=== PATIENT | female | born 1935 | race Caucasian/White ===

== ENCOUNTER → 2017-01-08 | Outpatient (CLI) | payer MEDICARE, BC ==
--- NOTE | 2017-01-08 10:41 | XR ---
EXAMINATION TYPE: XR chest 2V DATE OF EXAM: 01/08/2017 COMPARISON: Chest x-ray July 31, 2015. HISTORY: Cough for 3 weeks. TECHNIQUE: Frontal and lateral views of the chest are obtained. FINDINGS: There is no new focal air space opacity, pleural effusion, or pneumothorax seen. There is left basilar linear scarring or atelectasis redemonstrated. Cardiac silhouette size is upper limits of normal and stable. The osseous structures are intact. IMPRESSION: Chronic changes without acute pulmonary process. No significant change from prior.
== END | disposition home or self-care (01) ==
LOC: RADXRMAIN 09:53
PROVIDERS: ATTEND Nurse Practitioner
DX: J98.4 Other disorders of lung (principal); J98.01 Acute bronchospasm
CPT/HCPCS: 71020

== ENCOUNTER → 2017-03-29 | Outpatient (CLI) | payer MEDICARE, BC ==
--- NOTE | 2017-03-29 10:54 | XR ---
EXAMINATION TYPE: XR chest 2V DATE OF EXAM: 03/29/2017 COMPARISON: 01/08/2017 TECHNIQUE: PA and lateral views submitted. HISTORY: Cough FINDINGS: The lungs are clear and there is no pneumothorax, pleural effusion, or focal pneumonia. Hyperinflat ion noted with biapical pleural thickening. Degenerative change of the spine. IMPRESSION: 1. No acute process.
== END ==
LOC: RAD 10:39
PROVIDERS: ATTEND Family Medicine
DX: R05 Cough (principal)
CPT/HCPCS: 71020

== ENCOUNTER → 2017-05-25 | Outpatient (CLI) | payer MEDICARE, BC ==
--- NOTE | 2017-05-25 14:35 | US ---
EXAMINATION TYPE: US venous doppler duplex UE LT DATE OF EXAM: 05/25/2017 COMPARISON: NONE CLINICAL HISTORY: R22.32 Localized swelling. Palpable, tender areas felt by patient is upper lateral left arm, no injury, no iv site or recent shots, no h/o dvt SIDE PERFORMED: Left Left Arm: Appears negative for DVT scanned at area of patient palpable on left upper lateral arm and appearance of subcutaneous small lipoma seen, hyperechoic, 1.1cm in size, non vascular. Grayscale, color doppler, spectral doppler imaging performed of the deep veins of the upper extremiti es. There is normal flow, compressibility and vascular waveforms. IMPRESSION: No ultrasound evidence for acute deep or superficial vein thrombus in the left upper extr emity.
== END | disposition home or self-care (01) ==
LOC: RADUSWWP 12:52
PROVIDERS: ATTEND Family Medicine
DX: R22.32 Localized swelling, mass and lump, left upper limb (principal)

== ENCOUNTER → 2017-08-03 | Outpatient (CLI) | payer MEDICARE, BC ==
--- NOTE | 2017-08-03 15:12 | XR ---
EXAMINATION TYPE: XR chest 2V DATE OF EXAM: 08/03/2017 COMPARISON: 03/29/2017 TECHNIQUE: PA and lateral views submitted. HISTORY: Cough FINDINGS: The lungs are clear and there is no pneumothorax, pleural effusion, or focal pneumonia. Biapical pl eural thickening. No overt failure. Hypertrophic and degenerative change of the spine. Postsurgical c hange in the thoracolumbar junction. IMPRESSION: 1. No acute process.
== END | disposition home or self-care (01) ==
LOC: RADXRMAIN 14:53
PROVIDERS: ATTEND Family Medicine
DX: R05 Cough (principal)
CPT/HCPCS: 71046

== ENCOUNTER → 2018-03-04 | Outpatient (CLI) | payer MEDICARE, BC ==
[2018-03-04 16:06] LABS: Basophils % (A) 0 %; Eosinophils # (A) 0.1 k/uL (0-0.7); Eosinophils % (A) 1 %; HCT 39.2 % (34.0-46.0); HGB 12.6 gm/dL (11.4-16.0); Lymphocytes # (A) 1.1 k/uL (1.0-4.8); Lymphocytes % (A) 17 %; MCH 29.3 pg (25.0-35.0); MCHC 32.2 g/dL (31.0-37.0); Mean Platelet Volume 7.3; Monocytes # (A) 0.4 k/uL (0-1.0); Monocytes % (A) 6 %; Neutrophils # (A) 5.1 k/uL (1.3-7.7); Neutrophils % (A) 74 %; Platelet Count 203 k/uL (150-450); RBC 4.31 m/uL (3.80-5.40); WBC 6.9 k/uL (3.8-10.6)
== END | disposition home or self-care (01) ==
LOC: LABWHC1 15:41
PROVIDERS: ATTEND Internal Medicine Pulmonary Disease
DX: J45.909 Unspecified asthma, uncomplicated (principal); R05 Cough; R06.02 Shortness of breath
CPT/HCPCS: 36415; 82103; 82104; 82785; 85025; 86001; 86003; 86606; 86609

== ENCOUNTER → 2018-03-10 | Outpatient (CLI) | payer MEDICARE, BC ==
--- NOTE | 2018-03-10 08:57 | CT ---
EXAMINATION TYPE: CT chest wo con DATE OF EXAM: 03/10/2018 COMPARISON: Chest radiograph dated 08/03/2017 HISTORY: Cough, Shortness of breath CT DLP: 338.9 mGycm. Automated Exposure Control for Dose Reduction was Utilized. TECHNIQUE: CT scan of the thorax is performed without IV contrast. FINDINGS: LUNGS: There is a 6 mm subsolid pulmonary nodule within the right upper lobe on series 4 image 26. Th ere is also pleural-based 3 mm solid pulmonary nodule on series 4 image 46 also seen on coronal image 59. There is a spiculated subsolid pulmonary nodule in the left upper lobe measuring 7 x 4 mm on ser ies 4 image 23 and series 7 image 91. Subsequent 3 mm density is also seen anterolaterally within the left upper lobe on coronal image 102 and axial image 30. Within the right upper lobe there is a 3 mm solid pulmonary nodule on image 16. Minimal biapical pleural parenchymal scarring and subsegmental atelectasis are also noted. No focal c onsolidation, pulmonary vascular congestion, or significant emphysematous change. There is no pleural effusion or pneumothorax seen. The tracheobronchial tree is patent. MEDIASTINUM: Lack of IV contrast is noted to limit evaluation for mediastinal and especially hilar ad enopathy. There are no definitive greater than 1 cm hilar or mediastinal lymph nodes. No cardiomega ly or pericardial effusion is seen. Tdry-ms-qlaqqial coronary artery calcifications are noted. Ascend ing thoracic aorta is within normal limits of sizer measuring 3.3 cm. OTHER: Probable left renal sinus cyst is present. Nonspecific hypoattenuated splenic lesions are seen measuring 1.3 and 1.9 cm. These are near fluid attenuated and may represent cysts. Associated calcif ication is seen within the left splenic parenchyma on image 53. There is a small hiatal hernia presen t. Mild multilevel degenerative changes of thoracic spine is present.. IMPRESSION: 1. Multiple bilateral pulmonary nodules some of which are subcentimeter and measuring up to 7 mm on t he left. Given the nodules size and composition follow-up CT is recommended in 3-6 months to evaluate for resolution or progression as some of these these could be inflammatory or neoplastic. 2. No evidence of interstitial lung disease or focal consolidation.
== END ==
LOC: RADCTMAIN 08:18
PROVIDERS: ATTEND Internal Medicine Pulmonary Disease
DX: R91.8 Other nonspecific abnormal finding of lung field (principal)
CPT/HCPCS: 71250

== ENCOUNTER → 2018-06-28 | Outpatient (CLI) | payer MEDICARE, BC ==
--- NOTE | 2018-06-28 13:06 | CT ---
EXAMINATION TYPE: CT chest wo con DATE OF EXAM: 06/28/2018 COMPARISON: Abnormal CT scan HISTORY: Follow up "spots" on lung. Shortness of breath. CT DLP: 324.3 mGycm. Automated Exposure Control for Dose Reduction was Utilized. TECHNIQUE: CT scan of the thorax is performed without IV contrast. FINDINGS: LUNGS: Nodules: Stable 6 mm right upper lobe pulmonary nodule. Stable 3 mm pleural-based nodule right upper lobe The 7 x 4 mm nodule left upper lobe on previous exam no longer seen Two millimeter nodule right lower lobe stable Subsegmental areas of consolidation noted. Very mild interlobular septal thickening suggest mild surgical supervisor gianni interstitial lung disease. No pleural effusion.. 3 mm density anterior lateral margin left upper lobe stable. Stable 3 mm nodule right upper lobe. MEDIASTINUM: Lack of IV contrast is noted to limit evaluation for mediastinal and especially hilar ad enopathy. There are no definitive greater than 1 cm hilar or mediastinal lymph nodes. The heart is en larged and there is coronary artery calcification. No sizable pericardial effusion. Aorta of normal c aliber with atherosclerotic changes. There is a stable appearing extension of the inferior lobe of th e left thyroid into the upper mediastinum above the level of the sternum. Small thyroid nodule in the differential diagnosis. OTHER: Hypertrophic and degenerative changes of the spine noted. Chronic rib deformities on the left are incidentally noted correlate for remote trauma. Splenic lesions are stable. IMPRESSION: 1. There is interval resolution of the 7 mm nodule in the left upper lobe which likely is postinflamm atory. Remaining nodules are stable and measures 6 mm or less. 2. Splenic lesions are stable and are nonspecific by noncontrast technique. The what be more appropri ately evaluated with ultrasound.
== END | disposition home or self-care (01) ==
LOC: RADCTMAIN 11:59
PROVIDERS: ATTEND Internal Medicine Pulmonary Disease
DX: R91.8 Other nonspecific abnormal finding of lung field (principal); R06.02 Shortness of breath; R05 Cough
CPT/HCPCS: 71250

== ENCOUNTER → 2018-07-13 | Outpatient (CLI) | payer MEDICARE, BC ==
--- NOTE | 2018-07-14 10:56 | MM ---
Reason for exam: screening (asymptomatic). Last mammogram was performed 1 year ago. History: Patient is postmenopausal, has history of colon cancer at age 30, and history of other cancer. Family history of breast cancer in paternal grandmother at age 62. Benign excisional biopsy of the left breast, 2006. Took estrogen for 30 years beginning at age 43. Physical Findings: A clinical breast exam by your physician is recommended on an annual basis and results should be correlated with mammographic findings. MG 3D Screening Mammo W/Cad Bilateral CC and MLO view(s) were taken. Prior study comparison: July 21, 2017, left breast MG 3d work up w/cad LT. July 07, 2017, bilateral MG 3d screening mammo w/cad. The breast tissue is heterogeneously dense. This may lower the sensitivity of mammography. No significant changes when compared with prior studies. ASSESSMENT: Benign, BI-RAD 2 RECOMMENDATION: Routine screening mammogram of both breasts in 1 year.
== END | disposition home or self-care (01) ==
LOC: RADMAMWWP 15:33
PROVIDERS: ATTEND Family Medicine
DX: Z12.31 Encounter for screening mammogram for malignant neoplasm of breast (principal)
CPT/HCPCS: 77063; 77067

== ENCOUNTER → 2018-12-14 | Outpatient (CLI) | payer MEDICARE, BC | END | disposition home or self-care (01) | LOC: LABWHC1 11:36 | PROVIDERS: ATTEND Otolaryngology | DX: J30.89 Other allergic rhinitis (principal) | CPT/HCPCS: 36415 ==

== ENCOUNTER → 2019-01-11 | Outpatient (CLI) | payer MEDICARE, BC ==
--- NOTE | 2019-01-11 12:13 | BD ---
EXAMINATION TYPE: Axial Bone Density DATE OF EXAM: 01/11/2019 COMPARISON: 01/25/2009 CLINICAL HISTORY: Postmenopausal female. Osteoporosis screening. Height: 66.5 IN Weight: 167 LBS FRAX RISK QUESTIONS: Family History (Parent hip fracture): YES MOTHER History of Fracture in Adulthood: RT ANKLE FX AGE 75, RIBS AGE 79 Secondary Osteoporosis: 3. Menopause before 45: YES PARTIAL HYST AGE 31 RISK FACTORS HISTORY OF: Surgery to Spine/Hip(SHERRIE): SPINE SURGERY 2011; SHERRIE HIPS Active: YES Diet low in dairy products/other sources of calcium: YES Postmenopausal woman: PARTIAL HYST AGE 31 MEDICATIONS: Additional Medications: VIT D, BUPROPION, BABY ASPIRIN, TRAZADONE, LISINOPRIL, OMEPRAZOLE, MONT[place] T, NASAL SPRAY EXAM MEASUREMENTS: Bone mineral densitometry was performed using the [employer] System. Bone mineral density about the L Wrist (g/cm2): 0.536 T Score values are as follows: -----Dist. R+U: -3.5 -----Prox. R+U: -1.3 -----Radius total: -2.3 Bone mineral density BASELINE IMPRESSION: Normal (Values between +1 and -1 indicate normal bone mass). Consider repeating this study in 5 year s or sooner if there is some new clinical indication. NOTE: T-SCORE=SD OF THE YOUNG ADULT MEAN.
== END | disposition home or self-care (01) ==
LOC: RADBDWWP 09:02
PROVIDERS: ATTEND Family Medicine
DX: Z13.820 Encounter for screening for osteoporosis (principal); N95.1 Menopausal and female climacteric states
CPT/HCPCS: 77081

== ENCOUNTER → 2019-08-03 | Outpatient (CLI) | payer MEDICARE, BC ==
--- NOTE | 2019-08-07 09:31 | MM ---
Reason for exam: screening (asymptomatic). Last mammogram was performed 1 year and 1 month ago. History: Patient is postmenopausal, has history of colon cancer at age 30, and history of other cancer. Family history of breast cancer in paternal grandmother at age 62. Benign excisional biopsy of the left breast, 2006. Took estrogen for 30 years beginning at age 43. Physical Findings: A clinical breast exam by your physician is recommended on an annual basis and results should be correlated with mammographic findings. MG 3D Screening Mammo W/Cad Bilateral CC and MLO view(s) were taken. Prior study comparison: July 13, 2018, bilateral MG 3d screening mammo w/cad. July 21, 2017, left breast MG 3d work up w/cad LT. The breast tissue is heterogeneously dense. This may lower the sensitivity of mammography. No significant changes when compared with prior studies. ASSESSMENT: Negative, BI-RAD 1 RECOMMENDATION: Routine screening mammogram of both breasts in 1 year.
== END ==
LOC: RADMAMWWP 13:40
PROVIDERS: ATTEND Family Medicine
DX: Z12.31 Encounter for screening mammogram for malignant neoplasm of breast (principal)
CPT/HCPCS: 77063; 77067

== ENCOUNTER → 2020-10-10 | Outpatient (CLI) | payer MEDICARE, BC ==
--- NOTE | 2020-10-11 14:17 | MM ---
Reason for exam: screening (asymptomatic). Last mammogram was performed 1 year and 2 months ago. History: Patient is postmenopausal and has history of other cancer at age 30. Family history of breast cancer in paternal grandmother at age 62. Benign excisional biopsy of the left breast, 2006. Took estrogen for 30 years beginning at age 43. Physical Findings: A clinical breast exam by your physician is recommended on an annual basis and results should be correlated with mammographic findings. MG 3D Screening Mammo W/Cad Bilateral CC and MLO view(s) were taken. Prior study comparison: August 03, 2019, bilateral MG 3d screening mammo w/cad. July 13, 2018, bilateral MG 3d screening mammo w/cad. The breast tissue is heterogeneously dense. This may lower the sensitivity of mammography. There are benign appearing vascular calcifications bilaterally. Asymmetric breast tissue left inferior breast, stable. There is no discrete abnormality. ASSESSMENT: Benign, BI-RAD 2 RECOMMENDATION: Routine screening mammogram of both breasts in 1 year.
== END ==
LOC: RADMAMWWP 10:54
PROVIDERS: ATTEND Family Medicine
DX: Z12.31 Encounter for screening mammogram for malignant neoplasm of breast (principal); Z78.0 Asymptomatic menopausal state; Z80.3 Family history of malignant neoplasm of breast
CPT/HCPCS: 77063; 77067

== ENCOUNTER → 2020-12-06 | Outpatient (CLI) | payer MEDICARE, BC ==
--- NOTE | 2020-12-06 14:13 | CT ---
EXAMINATION TYPE: CT abdomen pelvis w con DATE OF EXAM: 12/06/2020 COMPARISON: None HISTORY: hematuria CT DLP: 936.50 mGycm Automated exposure control for dose reduction was used. CONTRAST: Performed with IV Contrast, patient injected with 100ml mL of Isovue 300. Images obtained from the diaphragm to the floor the pelvis with oral and IV contrast. Lung bases are clear. There is no pleural effusion. Heart size is normal. There is no pericardial eff usion. Liver appears intact. The bile ducts are not dilated. Stomach is intact. Spleen is intact. There are small splenic cysts that measure 1.5 cm. There is no pancreatic mass. Gallbladder appears normal. There is no adrenal mass. Kidneys show satisfactory contrast opacification. There is no hydronephrosi s. There is 2.4 cm cortical cyst lower pole right kidney. The delayed images show normal renal excret ion. There is no retroperitoneal adenopathy. There is metal artifact from bilateral hip prosthesis. B ladder distends smoothly. I see no pelvic mass. There is posterior fusion surgery in the lower lumbar spine. Lumbar vertebra have normal alignment. There is L3 mild compression fracture 15% with anterio r wedging. There are multiple sigmoid diverticula. I see no definite diverticulitis. Exam limited by metal artifact. IMPRESSION: Right renal cortical cyst. No solid renal mass. No renal obstruction. Colonic diverticulosis without definite diverticulitis.
== END | disposition home or self-care (01) ==
LOC: RADCTMAIN 11:46
PROVIDERS: ATTEND Family Medicine
DX: N28.1 Cyst of kidney, acquired (principal); K57.30 Diverticulosis of large intestine without perforation or abscess without bleeding
CPT/HCPCS: 82565; 84520; 74177; 36415; Q9967

== ENCOUNTER → 2020-12-10 | Outpatient (CLI) | payer MEDICARE, BC ==
--- NOTE | 2020-12-10 14:54 | XR ---
Right wrist HISTORY: Pain, trauma 4 views of the right wrist There are arthropathy changes, subchondral cyst formation is present within the carpal bones, radial styloid. Bone mineralization is reduced. Joint space loss is present radiocarpal joint, intercarpal r ow laterally. Alignment is maintained. Suspect some soft tissue calcifications are present distal to the radial styloid. IMPRESSION: Correlate for crystal deposition arthropathy, hypercalcemic states. No acute fracture or dislocation.
== END | disposition home or self-care (01) ==
LOC: RADXRMAIN 14:27
PROVIDERS: ATTEND Family Medicine
DX: M12.831 Other specific arthropathies, not elsewhere classified, right wrist (principal); E83.52 Hypercalcemia

== ENCOUNTER → 2021-01-13 | Outpatient (CLI) | payer MEDICARE, BC ==
--- NOTE | 2021-01-13 16:18 | BD ---
EXAMINATION TYPE: Axial Bone Density DATE OF EXAM: 01/13/2021 COMPARISON: 01/11/2019 CLINICAL HISTORY: Postmenopausal female. Height: 66 IN Weight: 168 LBS FRAX RISK QUESTIONS: Family History (Parent hip fracture): YES MOTHER Secondary Osteoporosis: 3. Menopause before 45: AGE 31 Rheumatoid Arthritis: YES RISK FACTORS HISTORY OF: Surgery to Spine/Hip(right/left): HIP REPLACEMENT LT 2012 RT 2013; L-SPINE SURGERY 2011 Active: YES Diet low in dairy products/other sources of calcium: YES Postmenopausal woman: AGE 31 MEDICATIONS: Additional Medications: LISINOPRIL, TRAZODONE, MONTELUKAST, BURPROPION,ASPIRIN, VIT D, ALBUTEROL SULF ATE, BUDESONIDE, PROBIOTIC, Additional History: APPENDIX CANCER NO TREATMENTS EXAM MEASUREMENTS: Bone mineral densitometry was performed using the [employer] System. PT HAD L-SPINE SURGERY PT HAD SHERRIE HIP REPLACEMENTS Bone mineral density about the L Wrist (g/cm2): 0.502 T Score values are as follows: -----Dist. R+U: -3.6 -----Prox. R+U: -1.9 -----Radius total: -2.8 Bone mineral density has: Decreased -6.7% since study of: 01/11/2019 IMPRESSION: Osteopenia (T Score between -2.5 and -1) remains present. There remains slightly increased risk of fracture and the patient may be considered for treatment. Re-Screen 2-5 years. NOTE: T-SCORE=SD OF THE YOUNG ADULT MEAN.
== END | disposition home or self-care (01) ==
LOC: RADBDWWP 10:50
PROVIDERS: ATTEND Family Medicine
DX: Z13.820 Encounter for screening for osteoporosis (principal); M85.80 Other specified disorders of bone density and structure, unspecified site; Z78.0 Asymptomatic menopausal state
CPT/HCPCS: 77081

== ENCOUNTER → 2021-10-27 | Outpatient (CLI) | payer MEDICARE, BC ==
--- NOTE | 2021-10-28 12:56 | MM ---
Reason for exam: screening (asymptomatic). Last mammogram was performed 1 year and 1 month ago. History: Patient is postmenopausal and has history of other cancer at age 30. Family history of breast cancer in paternal grandmother at age 62. Benign excisional biopsy of the left breast, 2006. Took estrogen for 30 years beginning at age 43. Physical Findings: A clinical breast exam by your physician is recommended on an annual basis and results should be correlated with mammographic findings. MG 3D Screening Mammo W/Cad Bilateral CC and MLO view(s) were taken. Prior study comparison: October 10, 2020, bilateral MG 3d screening mammo w/cad. August 03, 2019, bilateral MG 3d screening mammo w/cad. There are scattered fibroglandular densities. There is chronic nodularity in the right anterior lateral breast and the left inferior breast. Benign vascular calcifications. No significant changes when compared with prior studies. ASSESSMENT: Benign, BI-RAD 2 RECOMMENDATION: Routine screening mammogram of both breasts in 1 year.
== END | disposition home or self-care (01) ==
LOC: RADMAMWWP 12:42
PROVIDERS: ATTEND Family Medicine
DX: Z12.31 Encounter for screening mammogram for malignant neoplasm of breast (principal)
CPT/HCPCS: 77063; 77067

== ENCOUNTER → 2021-11-11 | Outpatient (CLI) | payer MEDICARE, BC ==
--- NOTE | 2021-11-11 09:49 | US ---
EXAMINATION TYPE: US thyroid st tissue head/neck DATE OF EXAM: 11/11/2021 COMPARISON: Outside prior not available for review. CLINICAL HISTORY: 86-year-old female E04.1. Follow-up exam from [facility] TECHNIQUE: Multiple sonographic images of the thyroid gland are obtained. FINDINGS: GLAND SIZE: Right Lobe: 3.3 x 1.7 x 2.0 cm Overall Parenchyma: heterogenous Left Lobe: 4.2 x 0.9 x 1.3 cm Overall Parenchyma: heterogeneous Isthmus Thickness: 0.6cm NODULES RIGHT: # of nodules measured on right: 1 1. 1.0 X 0.7 x 0.5 cm, mid , solid or almost completely solid, hypoechoic TR 4 nodule, which is wid er than tall, with smooth margins, without echogenic foci. 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 0.9 X 0.5 x 0.5 cm, mid/inf , solid or almost completely solid, hypoechoic TR 4 nodule, which is wider than tall, with smooth margins, with echogenic foci. Prior size: 1.4 x 1.2 x 1.3 cm ISTHMUS: # of nodules measured in the isthmus: 0 Bilateral neck scanned, no evidence of lymphadenopathy. IMPRESSION: 1. Heterogeneous thyroid parenchyma, possible goiter. 2. A solitary TR4 nodule on either side measuring 1 cm on the right and 9 mm on left. The left-sided nodule appears to be smaller compared to 1.4 cm on the outside prior. Prior exam images are not avail able for review.
== END | disposition home or self-care (01) ==
LOC: RADUSWWP 07:55
PROVIDERS: ATTEND Otolaryngology
DX: E04.1 Nontoxic single thyroid nodule (principal)
CPT/HCPCS: 76536

== ENCOUNTER → 2022-02-04 | Outpatient (CLI) | payer MEDICARE, BC ==
--- NOTE | 2022-02-04 11:13 | XR ---
EXAMINATION TYPE: XR chest 2V DATE OF EXAM: 02/04/2022 COMPARISON: Chest x-ray 08/03/2017 HISTORY: Pain and swelling TECHNIQUE: Frontal and lateral views of the chest are obtained. FINDINGS: There is no focal air space opacity, pleural effusion, or pneumothorax seen. The cardiac silhouette size is within normal limits. Aorta shows atheromatous change as on prior exam. The osseo us structures are stable, superior endplate depression at vertebral body near the thoracolumbar junct ion shows a stable appearance. There is thoracic spondylosis.. IMPRESSION: No acute cardiopulmonary process.
== END | disposition home or self-care (01) ==
LOC: RADXRMAIN 10:43
PROVIDERS: ATTEND Nurse Practitioner Family
DX: R07.89 Other chest pain (principal)
CPT/HCPCS: 71046

== ENCOUNTER → 2022-02-23 | Outpatient (CLI) | payer MEDICARE, BC ==
--- NOTE | 2022-02-23 20:23 | CT ---
EXAMINATION TYPE: CT chest wo con CT DLP: 328.10 mGycm, Automated exposure control for dose reduction was used. DATE OF EXAM: 02/23/2022 6:40 PM COMPARISON: CT chest 06/28/2018 CLINICAL INDICATION:Female, 87 years old with history of R07.89, R05.3 OTHER CHEST PAIN, UNDER BREAST CHEST PAIN AND COUGH TECHNIQUE: Multiple axial images were obtained through the chest. Sagittal and coronal reformats were created for review. Contrast used: none. Oral contrast used: none. FINDINGS: LUNGS/ PLEURA: No evidence of focal consolidation, pneumothorax or pleural effusion. There is right l ower lobe 3 mm pulmonary nodule. AIRWAY: Patent and unremarkable. HEART: Heart is mildly enlarged for size there is moderate to severe coronary artery atherosclerosis. MEDIASTINUM: No gross evidence of adenopathy. VASCULATURE: Atherosclerotic calcifications are present throughout the aorta and its branches. MUSCULOSKELETAL: No acute osseous abnormalities, multilevel disc degeneration changes with mild S-sha ped scoliosis. SOFT TISSUES/LYMPH NODES: Unremarkable. LOWER NECK: Left lower thyroid nodule measuring up to 10 mm. UPPER ABDOMEN: Scattered clonic diverticula are present. IMPRESSION: 1. No evidence for acute process within the thorax. 2. Moderate to severe coronary atherosclerosis. 3. Left lower thyroid nodule measuring 10 mm. 4. Right lower lobe 3 mm pulmonary nodule. Likely benign. Attention on follow-up in 12 months if the patient has risk factors.
== END | disposition home or self-care (01) ==
LOC: RADCTMAIN 17:24
PROVIDERS: ATTEND Family Medicine
DX: R07.89 Other chest pain (principal); R05.3 Chronic cough
CPT/HCPCS: 36415; 71250; 82565; 84520

== ENCOUNTER 2022-03-16 13:04 | Emergency (ER) | payer MEDICARE, BC ==
[2022-03-16] MEDS ORDERED: SODIUM CHLORIDE 0.9% 1,000 ML IV STA (13:55)
[2022-03-16] MEDS ORDERED: MORPHINE SULFATE 2 MG/ML SYRINGE IVP STA (13:55)
--- NOTE | 2022-03-16 14:24 | ED ---
Abdominal Pain HPI - General Chief Complaint: Abdominal Pain Stated Complaint: Abdominal Pain Time Seen by Provider: 03/16/22 13:50 Source: patient Mode of arrival: ambulatory Limitations: no limitations - History of Present Illness Initial Comments: Patient is an 87-year-old female presenting with chief complaint of right side pain. Patient states this pain has been ongoing since January, however she states that a few days ago while bending over while seated in chair, she felt a sharp onset of worsening pain. Patient states that the pain is located across her rib on the right upper side. Patient has no surgical history. Patient had a CT of the chest without contrast on 02/23/22, no acute process was found, there was a right lower lobe 3 mm pulmonary nodule that is likely benign as well as moderate to severe coronary atherosclerosis. Patient admits to nausea when the pain is severe, no vomiting. No diarrhea, , hematochezia, melena, dysuria, hematuria, flank pain, chest pain, shortness of breath, fever, chills, palpitations, weakness. - Related Data Home Medications Medication Instructions Recorded Confirmed Aspirin EC [Ecotrin Low Dose] 81 mg PO DAILY 03/16/22 03/16/22 Cholecalciferol [Vitamin D3 (125 125 mcg PO DAILY 03/16/22 03/16/22 Mcg = 5000 Iu)] Cyanocobalamin (Vitamin B-12) 1,000 mcg PO DAILY 03/16/22 03/16/22 [Vitamin B-12] Ezetimibe [Zetia] 10 mg PO HS 03/16/22 03/16/22 Montelukast [Singulair] 10 mg PO DAILY 03/16/22 03/16/22 Rosuvastatin Calcium [Crestor] 5 mg PO HS 03/16/22 03/16/22 buPROPion XL [Wellbutrin XL] 150 mg PO DAILY 03/16/22 03/16/22 lisinopriL [Zestril] 20 mg PO DAILY 03/16/22 03/16/22 traZODone HCL [Desyrel] 100 mg PO HS 03/16/22 03/16/22 Previous Rx's Medication Instructions Recorded Cyclobenzaprine [Flexeril] 10 mg PO HS #15 tab 03/16/22 Lidocaine 5% Patch [Lidoderm 5% 1 patch TOPICAL DAILY #1 packet 03/16/22 Patch] methylPREDNISolone Dose Pack 4 mg PO DIRECTED #1 packet 03/16/22 [Medrol Dose Pack] Allergies Allergy/AdvReac Type Severity Reaction Status Date / Time No Known Allergies Allergy Verified 03/16/22 13:10 Review of Systems ROS Statement: Those systems with pertinent positive or pertinent negative responses have been documented in the HPI. ROS Other: All systems not noted in ROS Statement are negative. Past Medical History Past Medical History: Asthma, Hyperlipidemia, Hypertension History of Any Multi-Drug Resistant Organisms: None Reported Past Surgical History: No Surgical Hx Reported Past Psychological History: No Psychological Hx Reported Smoking Status: Never smoker Past Alcohol Use History: Occasional Past Drug Use History: None Reported General Exam Limitations: no limitations General appearance: alert, in no apparent distress Head exam: Present: atraumatic, normocephalic, normal inspection Eye exam: Present: normal appearance, EOMI. Absent: scleral icterus, periorbital swelling Neck exam: Present: normal inspection Respiratory exam: Present: normal lung sounds bilaterally, chest wall tenderness (R side over inferior ribs). Absent: respiratory distress, wheezes, rales, rhonchi, stridor Cardiovascular Exam: Present: regular rate, normal rhythm, normal heart sounds. Absent: systolic murmur, diastolic murmur, rubs, gallop, clicks GI/Abdominal exam: Present: soft, tenderness (RUQ). Absent: distended, guarding, rebound, rigid Neurological exam: Present: alert, oriented X3, CN II-XII intact Psychiatric exam: Present: normal affect, normal mood Skin exam: Present: warm, dry, intact, normal color. Absent: rash Course Vital Signs 03/16/22 03/16/22 13:06 16:52 Temperature 98 F 98.1 F Pulse Rate 85 84 Respiratory 20 18 Rate Blood Pressure 161/84 167/100 O2 Sat by Pulse 96 96 Oximetry Medical Decision Making - Medical Decision Making Patient is an 87-year-old female presenting with chief complaint of right side pain. Patient states that the pain is right over her rib on the right lower side. Pain has been present since January, states that over the last few days it has worsened. Patient recently got a chest CT which showed no acute abnormalities. On examination there is pain to light palpation over the rib, this pain increases with range of motion. Lab work shows no leukocytosis, hepatobiliary labs are WNL. BUN and creatinine are consistent with baseline levels. Urine shows no evidence of infectious process. Acute abdominal series with chest x-ray shows COPD and some atelectasis, no evidence for free air or bowel obstruction. Pain is likely musculoskeletal in origin. Patient is given steroid, muscle relaxer, lidocaine patch. Instructed to follow-up with PCP in one to 2 days. Report back to ER if any new or worsening symptoms. Discussed return parameters answered all questions. Patient conveyed verbal understanding and agreed to the plan. I discussed this case with my attending Dr. Aguayo. - Lab Data Result diagrams: 03/16/22 14:15 03/16/22 14:15 Lab Results 03/16/22 03/16/22 03/16/22 Range/Units 14:15 14:15 14:15 WBC 5.1 (3.8-10.6) k/uL RBC 3.81 (3.80-5.40) m/uL Hgb 11.7 (11.4-16.0) gm/dL Hct 35.5 (34.0-46.0) % MCV 93.3 (80.0-100.0) fL MCH 30.8 (25.0-35.0) pg MCHC 33.0 (31.0-37.0) g/dL RDW 13.0 (11.5-15.5) % Plt Count 162 (150-450) k/uL MPV 8.4 Neutrophils % 63 % Lymphocytes % 26 % Monocytes % 8 % Eosinophils % 1 % Basophils % 0 % Neutrophils # 3.2 (1.3-7.7) k/uL Lymphocytes # 1.3 (1.0-4.8) k/uL Monocytes # 0.4 (0-1.0) k/uL Eosinophils # 0.1 (0-0.7) k/uL Basophils # 0.0 (0-0.2) k/uL PT 10.1 (9.0-12.0) sec INR 0.9 (<1.2) APTT 22.2 (22.0-30.0) sec Sodium (137-145) mmol/L Potassium (3.5-5.1) mmol/L Chloride (98-107) mmol/L Carbon Dioxide (22-30) mmol/L Anion Gap mmol/L BUN (7-17) mg/dL Creatinine (0.52-1.04) mg/dL Est GFR (CKD-EPI)AfAm (>60 ml/min/1.73 sqM) Est GFR (CKD-EPI)NonAf (>60 ml/min/1.73 sqM) Glucose (74-99) mg/dL Plasma Lactic Acid Chris (0.7-2.0) mmol/L Calcium (8.4-10.2) mg/dL Total Bilirubin (0.2-1.3) mg/dL AST (14-36) U/L ALT (4-34) U/L Alkaline Phosphatase (38-126) U/L Troponin I (0.000-0.034) ng/mL Total Protein (6.3-8.2) g/dL Albumin (3.5-5.0) g/dL Amylase (30-110) U/L Lipase (23-300) U/L Urine Color Light Yellow Urine Appearance Clear (Clear) Urine pH 6.5 (5.0-8.0) Ur Specific [place] 1.014 (1.001-1.035) Urine Protein Trace H (Negative) Urine Glucose (UA) Negative (Negative) Urine Ketones Trace H (Negative) Urine Blood Negative (Negative) Urine Nitrite Negative (Negative) Urine Bilirubin Negative (Negative) Urine Urobilinogen <2.0 (<2.0) mg/dL Ur Leukocyte Esterase Small H (Negative) Urine RBC 1 (0-5) /hpf Urine WBC 1 (0-5) /hpf Ur Squamous Epith Cells <1 (0-4) /hpf Urine Mucus Rare H (None) /hpf 03/16/22 03/16/22 03/16/22 Range/Units 14:15 14:15 14:15 WBC (3.8-10.6) k/uL RBC (3.80-5.40) m/uL Hgb (11.4-16.0) gm/dL Hct (34.0-46.0) % MCV (80.0-100.0) fL MCH (25.0-35.0) pg MCHC (31.0-37.0) g/dL RDW (11.5-15.5) % Plt Count (150-450) k/uL MPV Neutrophils % % Lymphocytes % % Monocytes % % Eosinophils % % Basophils % % Neutrophils # (1.3-7.7) k/uL Lymphocytes # (1.0-4.8) k/uL Monocytes # (0-1.0) k/uL Eosinophils # (0-0.7) k/uL Basophils # (0-0.2) k/uL PT (9.0-12.0) sec INR (<1.2) APTT (22.0-30.0) sec Sodium 138 (137-145) mmol/L Potassium 4.2 (3.5-5.1) mmol/L Chloride 100 (98-107) mmol/L Carbon Dioxide 26 (22-30) mmol/L Anion Gap 12 mmol/L BUN 20 H (7-17) mg/dL Creatinine 1.35 H (0.52-1.04) mg/dL Est GFR (CKD-EPI)AfAm 42 (>60 ml/min/1.73 sqM) Est GFR (CKD-EPI)NonAf 36 (>60 ml/min/1.73 sqM) Glucose 92 (74-99) mg/dL Plasma Lactic Acid Chris 0.6 L (0.7-2.0) mmol/L Calcium 10.6 H (8.4-10.2) mg/dL Total Bilirubin 0.7 (0.2-1.3) mg/dL AST 35 (14-36) U/L ALT 19 (4-34) U/L Alkaline Phosphatase 92 (38-126) U/L Troponin I <0.012 (0.000-0.034) ng/mL Total Protein 7.0 (6.3-8.2) g/dL Albumin 4.6 (3.5-5.0) g/dL Amylase 121 H (30-110) U/L Lipase 113 (23-300) U/L Urine Color Urine Appearance (Clear) Urine pH (5.0-8.0) Ur Specific [place] (1.001-1.035) Urine Protein (Negative) Urine Glucose (UA) (Negative) Urine Ketones (Negative) Urine Blood (Negative) Urine Nitrite (Negative) Urine Bilirubin (Negative) Urine Urobilinogen (<2.0) mg/dL Ur Leukocyte Esterase (Negative) Urine RBC (0-5) /hpf Urine WBC (0-5) /hpf Ur Squamous Epith Cells (0-4) /hpf Urine Mucus (None) /hpf Disposition Clinical Impression: Strain of thoracic back region Disposition: HOME SELF-CARE Condition: Good Instructions (If sedation given, give patient instructions): Muscle Strain (ED), Back Pain (ED) Additional Instructions: Follow-up with PCP in one to 2 days. Report back to ER if any new or worsening symptoms. Take medication as prescribed. Cyclobenzaprine may cause drowsiness, do not take before driving or operating heavy machinery. Prescriptions: Cyclobenzaprine [Flexeril] 10 mg PO HS #15 tab Lidocaine 5% Patch [Lidoderm 5% Patch] 1 patch TOPICAL DAILY #1 packet methylPREDNISolone Dose Pack [Medrol Dose Pack] 4 mg PO DIRECTED #1 packet Is patient prescribed a controlled substance at d/c from ED?: No Referrals: Vandana Nunez MD [Primary Care Provider] - 1-2 days Time of Disposition: 16:41
[2022-03-16 14:27] LABS: Basophils % (A) 0 %; Eosinophils # (A) 0.1 k/uL (0-0.7); Eosinophils % (A) 1 %; HCT 35.5 % (34.0-46.0); HGB 11.7 gm/dL (11.4-16.0); Lymphocytes # (A) 1.3 k/uL (1.0-4.8); Lymphocytes % (A) 26 %; MCH 30.8 pg (25.0-35.0); MCV 93.3 fL (80.0-100.0); Mean Platelet Volume 8.4; Monocytes # (A) 0.4 k/uL (0-1.0); Monocytes % (A) 8 %; Neutrophils # (A) 3.2 k/uL (1.3-7.7); Neutrophils % (A) 63 %; Platelet Count 162 k/uL (150-450); RBC 3.81 m/uL (3.80-5.40); WBC 5.1 k/uL (3.8-10.6)
[2022-03-16 14:32] LABS: Appearance,Urine Clear (Clear); Bilirubin,Urine Negative (Negative); Blood,Urine Negative (Negative); Color,Urine Light Yellow; Glucose,Urine (UA) Negative (Negative); Ketones,Urine Trace (Negative); Leukocyte Esterase,Urine Small (Negative); Mucus,Urine Rare /hpf; Nitrite,Urine Negative (Negative); PH, Urine 6.5 (5.0-8.0); Protein,Urine Trace (Negative); RBC,Urine 1 /hpf (0-5); Specific Gravity,Urine 1.014 (1.001-1.035); Squamous Epithelial Cell,Urine <1 /hpf (0-4); Urobilinogen,Urine <2.0 mg/dL (<2.0); WBC,Urine 1 /hpf (0-5)
[2022-03-16 14:37] LABS: Albumin 4.6 g/dL (3.5-5.0); Calcium 10.6 mg/dL (8.4-10.2); Potassium 4.2 mmol/L (3.5-5.1); Total Bilirubin 0.7 mg/dL (0.2-1.3)
[2022-03-16 14:44] LABS: INR 0.9 (<1.2); Partial Thromboplastin Time 22.2 sec (22.0-30.0); Prothrombin Time 10.1 sec (9.0-12.0)
--- NOTE | 2022-03-16 15:13 | XR ---
EXAMINATION TYPE: XR abdomen acute w cxr DATE OF EXAM: 03/16/2022 COMPARISON: 02/04/2022 HISTORY: 87 year-old female right upper quadrant pain FINDINGS: Heart normal size. Mild elongation thoracic aorta. Mild patchy density at the left base. Hyperinflati on. No other consolidation or pleural effusion. No evidence for free intraperitoneal air. Bilateral total hip arthroplasties. L4-S1 posterior fusion changes. Corresponding laminectomies. Numerous pelvic phleboliths. Scattered air and stool throughout the colon extending distally to the rectum. Mild overall stool bur den. No dilated small bowel identified. IMPRESSION: 1. COPD with some mild patchy left basilar atelectasis versus early infiltrate. Correlate with patien t's symptoms. 2. No evidence for free air or bowel obstruction.
[2022-03-16 16:53] VITALS: BP 167/100; PULSE 84; RESP 18; TEMP 98.1
== END 2022-03-16 16:53 | disposition home or self-care (01) ==
LOC: EC 13:04
DX: S29.012A Strain of muscle and tendon of back wall of thorax, initial encounter (principal); J45.909 Unspecified asthma, uncomplicated; E78.5 Hyperlipidemia, unspecified; I10 Essential (primary) hypertension; Z79.82 Long term (current) use of aspirin; Z79.899 Other long term (current) drug therapy; X50.9XXA Other and unspecified overexertion or strenuous movements or postures, initial encounter
CPT/HCPCS: 36415; 93005; 80053; 82150; 83605; 83690; 84484; 85025; 85610; 85730; 81001; 74022; 99284; 96374; 96361; J2270

== ENCOUNTER → 2022-05-07 | Outpatient (CLI) | payer MEDICARE, BC ==
--- NOTE | 2022-05-07 10:35 | MR ---
EXAMINATION TYPE: MR lumbar spine wo/w con DATE OF EXAM: 05/07/2022 COMPARISON: CT scan 12/06/2020, MRI 05/04/2022 HISTORY: Back pain that travels to left buttock for months TECHNIQUE: T1 and T2 axial and sagittal images of the lumbar spine are submitted. FINDINGS: There is no abnormal signal seen within the visualized spinal cord or paraspinal soft tissu es. Incidental note is made of a new moderate compression fracture T12 relative to prior CT scan of t he abdomen dated 12/06/2020 may be subacute. A entirely included in [id number] on axial. (5% retropu lsion suspected. At L1-2 there is no disc herniation or canal stenosis. No degenerative disc disease. No foraminal enc roachment. At L2-3 there is disc desiccation with facet arthropathy. Circumferential disc bulging with mild bereket l stenosis and bilateral foraminal encroachment. At L3-4 there is chronic anterior superior compression fracture L3. Degenerative disc disease noted w ith broad-based disc herniation. Postsurgical changes seen with facet arthropathy and ligamentum flav um hypertrophy. Severe canal stenosis and moderate bilateral foraminal encroachment. At L4-5 there is minimal anterolisthesis with postsurgical changes. Mild broad-based disc bulging pos teriorly with no evidence canal stenosis. Neural foramina appear to be patent. At L5-S1 there is severe degenerative disc disease with broad-based disc bulging protrusion. Postsurg ical changes are seen. Correlate for prior laminectomy. Neural foramina are patent. IMPRESSION: 1. Relative to the CT scan of 12/06/2020 there appears to be a moderate new compression fracture T12. T his is only partially included in field of view on the axial images. Correlate clinically for recent trauma. 2. Postsurgical change with multilevel degenerative disc disease. There appears to be broad-based dis c bulging or protrusion L5-S1 with no canal stenosis. Neural foramina are patent. 3. Circumferential and broad-based disc bulging L2-L3 with hypertrophy of the facets and ligamentum f lavum. Mild canal stenosis and bilateral foraminal encroachment. 4. Broad-based disc herniation L3-L4 with postsurgical change, facet arthropathy and marked ligamentu m flavum vertebrae contributing to his ear canal stenosis and moderate bilateral foraminal encroachme nt. 5. Grade 1 anterolisthesis of L4 on L5 with postsurgical changes. 6. Chronic superior endplate mild to moderate compression fracture L3.
== END | disposition home or self-care (01) ==
LOC: RADMRIMAIN 08:54
PROVIDERS: ATTEND Physician Assistant Surgical
DX: S32.030A Wedge compression fracture of third lumbar vertebra, initial encounter for closed fracture (principal)
CPT/HCPCS: 72158; A9585

== ENCOUNTER 2022-07-31 10:46 | Emergency (ER) | payer MEDICARE, BC ==
[2022-07-31 11:12] VITALS: TEMP 97.9
--- NOTE | 2022-07-31 12:37 | ED ---
Recheck HPI - General Chief Complaint: Recheck/Abnormal Lab/Rx Stated Complaint: abn labs Time Seen by Provider: 07/31/22 11:17 Source: patient, RN notes reviewed Mode of arrival: ambulatory Limitations: no limitations - History of Present Illness Initial Comments: Patient is a pleasant 87-year-old male presenting to the emergency room from home at the direction of her primary care provider for hypercalcemia. She reports that she has had several blood draws recently with multiple readings of elevated calcium level. Her most recent calcium level on file here is 12.1 drawn on 07/13/2022. She reports that she was advised to come to the emergency room for further evaluation of this elevation however she denies any symptomatology from her elevated calcium level including any altered mental status, weakness, focal neurological deficits, dizziness, headache, abdominal pain, nausea, vomiting, diarrhea, fevers or chills. She reports chronic back pain with surgical intervention recently with persistent back pain despite surgery and mild sciatica to the right leg without any red flag symptoms for cauda equina including any bowel or bladder incontinence,or saddle paresthesia. She ambulates at home with a walker. In addition to her chronic back pain she has a past medical history significant for asthma, hyperlipidemia, hypertension and osteoarthritis. - Related Data Home Medications Medication Instructions Recorded Confirmed Aspirin EC [Ecotrin Low Dose] 81 mg PO DAILY 03/16/22 07/31/22 Cholecalciferol [Vitamin D3 (125 125 mcg PO DAILY 03/16/22 07/31/22 Mcg = 5000 Iu)] Cyanocobalamin (Vitamin B-12) 1,000 mcg PO DAILY 03/16/22 07/31/22 [Vitamin B-12] Ezetimibe [Zetia] 10 mg PO HS 03/16/22 07/31/22 Montelukast [Singulair] 10 mg PO DAILY 03/16/22 07/31/22 Rosuvastatin Calcium [Crestor] 5 mg PO HS 03/16/22 07/31/22 buPROPion XL [Wellbutrin XL] 150 mg PO DAILY 03/16/22 07/31/22 lisinopriL [Zestril] 20 mg PO DAILY 03/16/22 07/31/22 traZODone HCL [Desyrel] 100 mg PO HS 03/16/22 07/31/22 Allergies Allergy/AdvReac Type Severity Reaction Status Date / Time No Known Allergies Allergy Verified 03/16/22 13:10 Review of Systems ROS Statement: Those systems with pertinent positive or pertinent negative responses have been documented in the HPI. ROS Other: All systems not noted in ROS Statement are negative. Past Medical History Past Medical History: Asthma, Hyperlipidemia, Hypertension, Osteoarthritis (OA) History of Any Multi-Drug Resistant Organisms: None Reported Past Surgical History: Orthopedic Surgery Past Psychological History: No Psychological Hx Reported Smoking Status: Never smoker Past Alcohol Use History: Occasional Past Drug Use History: None Reported General Exam - General Exam Comments Initial Comments: GENERAL: No acute distress, well developed, well nourished. HEENT: Normocephalic, atraumatic. Pupils equal, round, reactive to light. EOMI. Moist mucous membranes. Mild thyromegaly with thyroid nodules noted. LUNGS: No respiratory distress. Clear to auscultation, no adventitious sounds, no use of accessory muscles. HEART: Regular rate and rhythm without murmur, rub, or gallop. ABDOMEN: Normal bowel sounds. Soft, non-tender, non-distended. BACK: Normal inspection. EXTREMITIES: No edema. No tenderness. Moves all extremities. Strength 4/5 lower extremity 5/5 upper extremity. NEUROLOGIC: Alert & oriented x 3. CN II-XII grossly intact. PSYCHIATRIC: Normal affect and behavior. DERMATOLOGIC: Skin intact, without rashes or lesions noted. Limitations: no limitations Course Vital Signs 07/31/22 07/31/22 07/31/22 11:09 12:29 15:48 Temperature 97.9 F Pulse Rate 100 84 78 Respiratory 20 18 16 Rate Blood Pressure 150/68 146/76 176/83 O2 Sat by Pulse 98 98 Oximetry Medical Decision Making - Medical Decision Making Was pt. sent in by a medical professional or institution? @ -PCP Did you speak to anyone other than the patient for history? @ -No Did you review nursing and triage notes? @ -Yes and agree Were old charts reviewed? @ -Previous labs completed at this facility along with previous EKG Differential Diagnosis? @ -Differential hypercalcemia, primary hypercalcemia, secondary hypercalcemia due to renal for source or parathyroid abnormality, malignancy, this is not meant to be an all-inclusive list. EKG interpreted by me (3pts min.)? @ -Normal sinus rhythm, incomplete bundle branch block right, ventricular rate 85 bpm SD interval 186 ms, QRS duration 104 ms QT/QTC 305/423 ms, PRT axes 9, - 38, 36 X-rays interpreted by me (1pt min.)? @ -None CT interpreted by me (1pt min.)? @ -None U/S interpreted by me (1pt. min.)? @ -None What testing was considered but not performed? (CT, X-rays, U/S, labs)? Why? @None What meds were considered but not given? Why? @ -IV hydration was considered labs are without significant deviation not needed. Did you discuss the management of the patient with other professionals? @ -None Did you reconcile home meds? @ -No Was smoking cessation discussed for >3mins.? @ -Not applicable Was critical care preformed (if so, how long)? @ -None Were there social determinants of health that impacted care today? How? (Homelessness, low income, unemployed, alcoholism, drug addiction, tr ansportation, low edu. Level, literacy, decrease access to med. care, residential, rehab)? @ -None Was there de-escalation of care discussed even if they declined? (Discuss DNR or withdrawal of care, Hospice)? @ -No What co-morbidities impacted this encounter? (DM, HTN, Smoking, COPD, CAD, Cancer, CVA, Hep., AIDS, mental health diagnosis, sleep apnea, morbid obesity)? @ -No Was patient admitted / discharged? @ -CMP, mag, loss ionized calcium PTH and urinalysis along with urine for calcium ordered. CMP revealed calcium only mildly elevated at 10.7. Creatinine elevated at 1.35. No other electrolyte abnormalities magnesium normal. PTH pending. Urinalysis overall without acute abnormalities. No further indication for further workup as calcium level not significantly elevated. Will discharge home in stable condition with follow-up with her primary care provider. Return parameters to the emergency room reviewed. Advised to avoid Tums and other calcium supplements. Undiagnosed new problem with uncertain prognosis? @ -Previous hypercalcemia none at this time Drug Therapy requiring intensive monitoring for toxicity (Heparin, Nitro, Insulin, Cardizem)? @ -None Were any procedures done? @ -None Diagnosis/symptom? @ -Hypercalcemia Acute, or Chronic, or Acute on Chronic? @ -Acute Uncomplicated (without systemic symptoms) or Complicated (systemic symptoms)? @ -Uncomplicated Side effects of treatment? @ -None Exacerbation, Progression, or Severe Exacerbation] @ -No Poses a threat to life or bodily function? @ -No Case discussed with Dr. Adler. - Lab Data Result diagrams: 07/31/22 11:51 Lab Results 07/31/22 07/31/22 Range/Units 11:51 11:51 Sodium 138 (137-145) mmol/L Potassium 4.1 (3.5-5.1) mmol/L Chloride 103 (98-107) mmol/L Carbon Dioxide 28 (22-30) mmol/L Anion Gap 7 mmol/L BUN 12 (7-17) mg/dL Creatinine 1.35 H (0.52-1.04) mg/dL Est GFR (CKD-EPI)AfAm 42 (>60 ml/min/1.73 sqM) Est GFR (CKD-EPI)NonAf 36 (>60 ml/min/1.73 sqM) Glucose 92 (74-99) mg/dL Calcium 10.7 H (8.4-10.2) mg/dL Magnesium 1.8 (1.6-2.3) mg/dL Total Bilirubin 0.5 (0.2-1.3) mg/dL AST 24 (14-36) U/L ALT 17 (4-34) U/L Alkaline Phosphatase 89 (38-126) U/L Total Protein 6.2 L (6.3-8.2) g/dL Albumin 4.2 (3.5-5.0) g/dL Urine Color Yellow Urine Appearance Clear (Clear) Urine pH 6.0 (5.0-8.0) Ur Specific [place] 1.014 (1.001-1.035) Urine Protein 1+ H (Negative) Urine Glucose (UA) Negative (Negative) Urine Ketones Negative (Negative) Urine Blood Negative (Negative) Urine Nitrite Negative (Negative) Urine Bilirubin Negative (Negative) Urine Urobilinogen <2.0 (<2.0) mg/dL Ur Leukocyte Esterase Trace H (Negative) Urine WBC 2 (0-5) /hpf Ur Squamous Epith Cells <1 (0-4) /hpf Urine Bacteria Rare H (None) /hpf Urine Mucus Rare H (None) /hpf Disposition Clinical Impression: Hypercalcemia Disposition: HOME SELF-CARE Condition: Stable Instructions (If sedation given, give patient instructions): Hypercalcemia (ED) Additional Instructions: Please avoid calcium supplementation including Tums. Please follow-up with your primary care provider. Please return to the Emergency Department if symptoms worsen or any other concerns. Is patient prescribed a controlled substance at d/c from ED?: No Referrals: Vandana Nunez MD [Primary Care Provider] - 1-2 days Time of Disposition: 15:18
[2022-07-31 13:03] LABS: Appearance,Urine Clear (Clear); Bacteria,Urine Rare /hpf; Bilirubin,Urine Negative (Negative); Blood,Urine Negative (Negative); Color,Urine Yellow; Glucose,Urine (UA) Negative (Negative); Ketones,Urine Negative (Negative); Leukocyte Esterase,Urine Trace (Negative); Mucus,Urine Rare /hpf; Nitrite,Urine Negative (Negative); Protein,Urine 1+ (Negative); Specific Gravity,Urine 1.014 (1.001-1.035); Squamous Epithelial Cell,Urine <1 /hpf (0-4); Urobilinogen,Urine <2.0 mg/dL (<2.0); WBC,Urine 2 /hpf (0-5)
[2022-07-31 13:25] LABS: Albumin 4.2 g/dL (3.5-5.0); Calcium 10.7 mg/dL (8.4-10.2); Magnesium 1.8 mg/dL (1.6-2.3); Potassium 4.1 mmol/L (3.5-5.1); Total Bilirubin 0.5 mg/dL (0.2-1.3); Total Protein 6.2 g/dL (6.3-8.2)
[2022-07-31 15:49] VITALS: BP 176/83; PULSE 78; RESP 16
== END 2022-07-31 15:49 | disposition home or self-care (01) ==
LOC: EC 10:46
DX: E83.52 Hypercalcemia (principal); I10 Essential (primary) hypertension; J45.909 Unspecified asthma, uncomplicated; Z79.82 Long term (current) use of aspirin
CPT/HCPCS: 36415; 80053; 81001; 82310; 83735; 93005; 99285